=== PATIENT | female | born 1975 | race Caucasian/White ===

== ENCOUNTER 2024-04-19 21:38 | Emergency (ER) | payer BC ==
[~2024-04-19] VITALS: Ht 162.6 cm; Wt 84.0 kg
[2024-04-19 21:48] VITALS: O2SAT 100
[2024-04-19] MEDS: ONDANSETRON HCL 4MG/2ML INJ IV STA (22:33)
[2024-04-19] MEDS: KETOROLAC 30MG/ML VIAL IV STA (22:33)
[2024-04-19 22:47] LABS: BASOPHILS % 0.5 % (0.0-2.0); EOSINOPHILS % 5.2 % (0.0-5.0); HEMATOCRIT. 42.8 % (36.0-48.0); HEMOGLOBIN. 14.2 g/dL (12.0-16.0); LYMPHOCYTES % 23.9 % (20.0-50.0); MEAN CORPUSCULAR HEMOGLOBIN 29.7 pg (28.0-32.0); MEAN CORPUSCULAR HGB CONC 33.2 g/dL (31.0-37.0); MEAN CORPUSCULAR VOLUME 89.5 fL (81.0-99.0); MEAN PLATELET VOLUME 8.5 fl (7.4-10.4); MONOCYTES % 4.9 % (2.0-8.0); NEUTROPHILS % 65.5 % (40.0-76.0); PLATELET 248 x1000/uL (130-400); RED BLOOD CELL COUNT 4.79 mill/uL (4.2-5.4); RED CELL DISTRIBUTION WIDTH 12.9 % (11.6-14.6); WHITE BLOOD COUNT 11.7 x1000/uL (4.5-11.0)
[2024-04-19 22:52] LABS: CHLORIDE 108 mEq/L (98-107); POTASSIUM 4.9 mEq/L (3.5-5.1); SODIUM 142 mEq/L (136-145)
[2024-04-19 22:53] LABS: CARBON DIOXIDE 28 mEq/L (21-32)
[2024-04-19 22:54] LABS: CALCIUM 10.4 mg/dL (8.7-10.4)
[2024-04-19 22:55] LABS: PROTHROMBIN TIME 10.9 sec (9.6-11.0)
[2024-04-19 22:59] LABS: CREATININE 1.1 mg/dL (0.6-1.0); GLUCOSE 114 mg/dL (70-105); UREA NITROGEN BLOOD 13 mg/dL (9-23)
[2024-04-19 23:00] LABS: ALANINE AMINOTRANSFERASE 19 IU/L (10-49)
[2024-04-19 23:01] LABS: ALBUMIN 4.9 g/dL (3.2-4.8); ASPARTATE AMINOTRANSFERASE 19 IU/L (<34); BILIRUBIN DIRECT 0.1 mg/dL (<=3.0); BILIRUBIN TOTAL 0.4 mg/dL (0.1-1.0); PROTEIN TOTAL 7.5 g/dL (6.0-8.3)
[2024-04-19 23:03] LABS: CLARITY URINE TURBID (CLEAR); COLOR URINE YELLOW (YELLOW); GLUCOSE URINE NEGATIVE (NEGATIVE); KETONES URINE NEGATIVE (NEGATIVE); LEUKOCYTE ESTERASE URINE 1+ (NEGATIVE); NITRITE URINE NEGATIVE (NEGATIVE); OCCULT BLOOD URINE NEGATIVE (NEGATIVE); PROTEIN URINE TRACE (NEGATIVE); SPECIFIC GRAVITY URINE 1.017 (1.005-1.030)
[2024-04-19 23:07] LABS: HCG SCREEN NEGATIVE
[2024-04-20] MEDS ORDERED: ONDA4TAB11 PO (01:52)
[2024-04-20] MEDS ORDERED: OXYC-100 MT (01:53)
[2024-04-20] MEDS ORDERED: TAMS-11 MT (01:53)
[2024-04-20] MEDS: SODIUM CHLORIDE 0.9% 1,000 ML IV ONE (01:59)
[2024-04-20] MEDS: DIATR MEGLU/DIATRIZOATE SOLN 30ML ONE (02:01)
[2024-04-20 03:57] VITALS: BP 128/82; PULSE 54; RESP 18; TEMP 98.2
[2024-04-20 04:21] LABS: SQUAMOUS EPITHELIAL CELL URINE FEW /lpf (RARE/1+); WBC URINE 0-2 /hpf (0-2)
[2024-04-20 04:22] LABS: BACTERIA URINE NONE SEEN
[2024-04-20 04:23] LABS: AMORPHOUS SEDIMENT URINE 1+ /lpf
== END 2024-04-20 03:59 | disposition home or self-care (01) ==
LOC: ER 21:38
DX: N20.0 Calculus of kidney (principal)
CPT/HCPCS: 80076; 80048; 81003; 84703; 83690; 85025; 85610; 36415; 96374; 96375; 99285; 74176; J1885; J2405; Q9963; J7030; Z7610